=== PATIENT | male | born 1985 | race Caucasian/White ===

== ENCOUNTER 2022-03-03 00:34 | Emergency (ER) | payer OTHER ==
[~2022-03-03] VITALS: Ht 182.9 cm; Wt 90.7 kg
[2022-03-03 00:35] VITALS: BP 134/84
[2022-03-03] MEDS ORDERED: KETO10TA2 PO (01:34)
== END 2022-03-03 01:45 | disposition home or self-care (01) ==
LOC: ER 00:38
DX: S56.911A Strain of unspecified muscles, fascia and tendons at forearm level, right arm, initial encounter (principal); V00.311A Fall from snowboard, initial encounter; Y93.89 Activity, other specified; Y92.89 Other specified places as the place of occurrence of the external cause; Y99.8 Other external cause status
CPT/HCPCS: 73090-TC